=== PATIENT | female | born 1950 | race Caucasian/White ===

== ENCOUNTER 2018-10-04 08:03 | Inpatient (IN) | payer MEDICARE, OTHER ==
[2018-10-04] MEDS ORDERED: TRANEXAMIC ACID 1 GM/100 ML (PMX) (10:00)
[2018-10-04] MEDS ORDERED: SEVOFLURANE 15 MIN (10:00)
[2018-10-04] MEDS: TRANEXAMIC ACID 1GM/100ML(PMX) 100 ML IVPB ×3 (10:02→13:00)
[2018-10-04] MEDS: VANCOMYCIN 1 GM (PMX) 250 ML IVPB (10:05)
[2018-10-04] MEDS: DEXAMETHASONE 1 MG TAB PO (10:05)
[2018-10-04] MEDS: GABAPENTIN 300 MG CAP PO ×2 (10:09→21:49)
[2018-10-04] MEDS ORDERED: MIDAZOLAM 1 MG/ML 2 ML INJ (10:10)
[2018-10-04] MEDS ORDERED: ETOMIDATE 20 MG INJ (10:10)
[2018-10-04] MEDS ORDERED: ROPIVACAINE 0.5 % 30 ML VIAL (10:10)
[2018-10-04] MEDS ORDERED: FENTAnyl 50 MCG/ML VIAL (10:10)
[2018-10-04] MEDS ORDERED: ROCURONIUM 50 MG INJ (10:10)
[2018-10-04] MEDS: LACTATED RINGER'S 1,000 ML IV ×2 (10:12→18:02)
[2018-10-04] MEDS ORDERED: ALBUMIN HUMAN 5% 250 ML IV (10:30)
[2018-10-04] MEDS ORDERED: FENTAnyl 50 MCG/ML VIAL IV ×3 (10:30)
[2018-10-04] MEDS ORDERED: EPHEDrine SULFATE 50 MG/5 ML SYG IV (10:30)
[2018-10-04] MEDS ORDERED: OXYCODONE/ACETAMINOPHEN (5/325) TAB PO (10:30)
[2018-10-04] MEDS ORDERED: METOCLOPRAMIDE 10 MG INJ IV (10:30)
[2018-10-04] MEDS ORDERED: HYDROmorphONE 1 MG/5 ML IV SYRINGE IV (10:30)
[2018-10-04] MEDS ORDERED: MEPERIDINE 25 MG INJ IV (10:30)
[2018-10-04] MEDS ORDERED: hydrALAzine 20 MG INJ IV (10:30)
[2018-10-04] MEDS ORDERED: LABETALOL HCL 20MG INJ IV (11:00)
[2018-10-04] MEDS ORDERED: LABETALOL HCL 20MG INJ (11:54)
[2018-10-04] MEDS ORDERED: hydrALAzine 20 MG INJ (11:54)
[2018-10-04] MEDS ORDERED: ONDANSETRON 4 MG INJ (12:04)
[2018-10-04] MEDS ORDERED: DEXAMETHASONE 4 MG/ML 5 ML INJ (12:04)
[2018-10-04] MEDS ORDERED: METOCLOPRAMIDE 10 MG INJ (12:04)
[2018-10-04] MEDS ORDERED: KETOROLAC 30 MG INJ (12:04)
[2018-10-04] MEDS: CA CHLORIDE 10% 10 ML SYRINGE (12:18)
[2018-10-04] MEDS: POLYMYXIN/BACITRACIN 1L IRRIG (12:18)
[2018-10-04] MEDS: BUPIVACAINE 0.5% (SDV) 30 ML, morphine SULFATE (PF) 8 MG, EPINEPHrine 0.3 MG, KETOROLAC... IRR (12:18)
[2018-10-04] MEDS: THROMBIN 5000 UNIT VIAL (12:19)
[2018-10-04] MEDS ORDERED: SUGAMMADEX SODIUM 200 MG/2 ML VIAL IV (12:46)
[2018-10-04] MEDS ORDERED: NACL 0.9% 3 ML SYG IV (13:00)
[2018-10-04] MEDS ORDERED: HYDROmorphONE 1 MG/ML SYG IV (13:00)
[2018-10-04] MEDS ORDERED: VANCOMYCIN 500 MG (PMX) 100 ML IVPB (13:00)
[2018-10-04] MEDS ORDERED: LOPERAMIDE 2 MG CAP PO (13:00)
[2018-10-04] MEDS ORDERED: oxyCODONE 5 MG TAB PO ×2 (13:00)
[2018-10-04] MEDS ORDERED: MAGNESIUM HYDROXIDE 30ML CUP PO (13:00)
[2018-10-04] MEDS ORDERED: ZOLPIDEM 5 MG TAB PO (13:00)
[2018-10-04] MEDS: ONDANSETRON 4 MG INJ IV ×2 (13:31→19:29)
[2018-10-04] MEDS: DIPHENHYDRAMINE 50 MG INJ IV (13:31)
[2018-10-04] MEDS: HYDROmorphONE 1 MG/5 ML IV SYRINGE IV ×2 (13:31→13:45)
[2018-10-04] MEDS: KETOROLAC 15 MG INJ IV (15:37)
[2018-10-04] MEDS: ACETAMINOPHEN 500 MG TAB PO ×2 (18:00→23:56)
[2018-10-04] MEDS: VANCOMYCIN 500 MG (PMX) 100 ML IVPB (18:03)
[2018-10-04] MEDS: DEXAMETHASONE 2 MG TAB PO ×2 (18:19→23:52)
[2018-10-04] MEDS: oxyCODONE 5 MG TAB PO ×2 (18:20→22:30)
[2018-10-04] MEDS: SENNA/DOCUSATE NA (8.6MG/50MG) TAB PO (21:49)
[2018-10-05] MEDS: oxyCODONE 5 MG TAB PO ×3 (02:43→10:45)
[2018-10-05] MEDS: DIPHENHYDRAMINE 50 MG INJ IV (02:47)
[2018-10-05] MEDS: DEXAMETHASONE 2 MG TAB PO (05:56)
[2018-10-05] MEDS: ACETAMINOPHEN 500 MG TAB PO (06:00)
[2018-10-05] MEDS: VANCOMYCIN 500 MG (PMX) 100 ML IVPB (06:44)
[2018-10-05] MEDS: SENNA/DOCUSATE NA (8.6MG/50MG) TAB PO (08:52)
== END 2018-10-05 11:45 | disposition home or self-care (01) | DRG 483 ==
LOC: REC 08:03 → MS1 14:37
PROC: 0RRJ00Z Replacement of Right Shoulder Joint with Reverse Ball and Socket Synthetic Substitute, Open Approach (ICD-10-PCS; principal; 2018-10-04 10:30)
DX: M19.011 Primary osteoarthritis, right shoulder (principal); M75.101 Unspecified rotator cuff tear or rupture of right shoulder, not specified as traumatic; I25.10 Atherosclerotic heart disease of native coronary artery without angina pectoris; I10 Essential (primary) hypertension; M32.9 Systemic lupus erythematosus, unspecified; E03.9 Hypothyroidism, unspecified; F32.9 Major depressive disorder, single episode, unspecified; M81.0 Age-related osteoporosis without current pathological fracture; E78.5 Hyperlipidemia, unspecified; Z95.1 Presence of aortocoronary bypass graft
CPT/HCPCS: 86999; 88304; 88311; 97162